=== PATIENT | female | born 1975 | race Caucasian/White ===

== ENCOUNTER 2017-05-25 13:30 | Inpatient (IN) | payer BC ==
[~2017-05-25] VITALS: Ht 165.1 cm; Wt 106.6 kg
--- NOTE | ~2017-05-25 | ECHO ---
Transthoracic Echocardiography Report (TTE) Demographics Patient Name AIYANA ZARATE Date of Study 05/28/2017 Patient Number [id number] Visit Number [id number] Date of 1975 Room Number G6226 Gender Female Number Age 42 year(s) Referring Julio Cesar Corrales MD Blood Bank Credit Clerk Fredis Hutchins Libra, Physician Maggie Correia [facility] Everett Fuller MD Physician Interpreting Luis Fernando Rushing Stallion Keeper Physician A Supervising Ordering Julio Cesar Corrales MD, MD/MLP Physician Nurse Stress Punch Press Feeder Conclusions Summary Full exam done on 05/25/17. Limited echo for bubble study to rule out if there is a PFO present. Cannot definitively rule out of is a PFO is present. Definitely no significant R to L shunt is present Procedure Type of Study TTE procedure:Echo Limited w/ Contrast, Echo with Contrast. Procedure Date Date: 05/28/2017 Start: 12:11 PM Study Location: Inpatient Portable Technical Quality: Adequate visualization Indications:PFO. Appropriate Use Criteria: 8 Patient Status: Routine Contrast Medium: Optison. Rhythm: NSR HR: 80 bpm Allergies - No known allergies. Signature dtt: 05/30/17 1003 Ernestina Gould dtd: 05/28/17 1211 Physician Self Edit
--- NOTE | ~2017-05-25 | CATH ---
Cardiac Diagnostic Report Demographics Patient Name TESSA Correia Gender Female Date of 1975 Age 42 year(s) Patient Number [id number] Date of Study 05/31/2017 Visit Number [id number] Room Number G6[address] [place] [id number] Ht 167.64 cm Wt 116.01 kg Referring Maggie Kelly Primary Physician Physician Masood Performing [place] Secondary Physician Physician Praveena LEWIS Diagnostic [facility] Assisting Physician Physician Praveena LEWIS Interventional Physician Wallboard Worker Physician Findings and Conclusions Diagnostic Findings and Conclusion Moderate pulmonary HTN, mean PA systolic pressure of 43 mmHg, TPG of 30 mmHg, PCWP of 13 mmHg. Vasodilator testing with nipride: Nipride challenge without any significant reversibility. Dose titrated according to protocol upto 8 mcgs/kg/minute of nipride without any significant response and test was terminated. Pre Nipride PA 53/35 (43) Wedge 16/11 (13) RV 52/1 RA 5/4 Post Nipride PA 51/24 (37) Wedge 9/10 Bakari CO 5.14 PA sat 74%, RA sat 72% on 1 L/oxygen. Diagnostic Recommendations Medical management. consider xarelto for treatment of acute PE/DVT. Negative vasodilator response with nipride. Procedure Description The patient was brought to the diagnostic cardiac catheterization-EP laboratory in the fasting, non-sedated state. Informed consent was obtained in the written and verbal form after the risks and benefits were explained. The patient had no further questions and agreed to proceed. The planned puncture-incision site(s) were shaved and prepped with ChloraPrep and draped in the usual sterile manner. Conscious sedation, supplemental oxygen, and pain control medications were delivered by a registered nurse under physician guidance. Surface ECG rhythm, blood pressure measurement, and pulse oximetry were monitored throughout the procedure. Venous access. The access site was infiltrated with lidocaine. The vessel was entered with the Seldinger technique. A sheath was advanced into the vessel and used for catheter placement. Right heart catheterization. A Sargeant Carrol catheter was successfully advanced to the right atrium, right ventricle, pulmonary artery, and pulmonary artery wedge position under fluoroscopic guidance. Resting hemodynamics were obtained. Measurements included pressures, arterial and venous oxygen saturation samples. Nipride challenge was performed by protocol. The Sargeant was removed without difficulty. Venous hemostasis was achieved. The patient was transferred to a regular nursing floor via cart accompanied by a nurse. The patient left the laboratory in stable condition. Diagnostic Cath Status: Urgent Procedure Procedure Type Diagnostic procedure:Angiography:, RHC Indications: Pulmonary HTN. The procedure was explained in detail to the patient. Risks, complications and alternative treatments were reviewed. Written consent was obtained. Medications Reviewed with Patient prior to Procedure. Procedure Data Procedure Date Date: 05/31/2017Start: 12:04 PMEnd: 12:49 PM Entry Locations - Percutaneous access was performed through the Right Brachial vein (Primary location). A 6 Fr sheath was inserted. Hemostasis was successfully obtained using Manual Compression. Closure Comments: Manual pressure held by Bigg.. Procedure Medications Order and Administration + + + + + !Time !Medication !Dosage !Route ! + + + + + !05/31/2017 12:15 PM !Nipride !1 mcg/kg/min !I.V. drip ! + + + + + !05/31/2017 12:17 PM !Nipride !2 mcg/kg/min !I.V. drip ! + + + + + !05/31/2017 12:20 PM !Nipride !3 mcg/kg/min !I.V. drip ! + + + + + !05/31/2017 12:23 PM !Nipride !4 mcg/kg/min !I.V. drip ! + + + + + !05/31/2017 12:25 PM !Nipride !5 mcg/kg/min !I.V. drip ! + + + + + !05/31/2017 12:28 PM !Nipride !6 mcg/kg/min !I.V. drip ! + + + + + !05/31/2017 12:30 PM !Nipride !7 mcg/kg/min !I.V. drip ! + + + + + !05/31/2017 12:31 PM !Nipride !8 mcg/kg/min !I.V. drip ! + + + + + !05/31/2017 12:34 PM !Nipride ! !I.V. drip ! + + + + + !05/31/2017 12:38 PM !Heparin (ACC_3) !1000 units !I.V. drip ! + + + + + Devices Used - A6 Fr. Balloon Wedge Catheterwas used for:Right heart cath. Fluoroscopy Time: Diagnostic: 1:48 minutes. Total: 1:48 minutes. Fluoroscopy Dose: Diagnostic: 21 mGy. Total: 21 mGy. Estimated Blood Loss: 10 ml. Medical History Performed Procedures and Imaging Results - No ACC stress or imaging studies were performed. History of Disease + + + + !Diagnosis !Date !Comments ! + + + + !Hypertension ! ! ! + + + + Allergies - No known allergies. Risk Factors The patient risk factors include:hypertension, chronic lung disease, last creatinine: 0.8 mg/dl, creatinine clearance: 167.77 ml/min and Current/Recent(w/in 1 year) tobacco use. Admission Data Admission Date: 05/25/2017 Admission Time: 01:32 PM Admit Source: [facility] Insurance Payors: Private health insurance. Admission Medications + +------+------+ + + + + !Medication !Dosage!Times !Last !Last !Administered !Comments ! ! ! !Per !Delivery !Delivery ! ! ! ! ! !Day !Date !Time ! ! ! + +------+------+ + + + + !KARINA ! ! ! ! !Yes ! ! !Inhibitor ! ! ! ! ! ! ! !(any) ! ! ! ! ! ! ! + +------+------+ + + + + !Nitrates (iv! ! ! ! !Yes ! ! !or buccal) ! ! ! ! ! ! ! + +------+------+ + + + + Clinical Evaluation Leading to Procedure - There were no CAD presentation symptoms. - Anti-anginal medications were prescribed during the past two weeks. The medication is: Ca channel Blockers. - The patient has been in a state of heart failure within the past two weeks. - The patient's heart failure status was assessed as NYHA Class IV. Hemodynamics Condition: Rest O2 Consumption: Estimated: 227.70Heart Rate: 74 bpm Oxygen Saturation +--------+-----+----+ +---+ + !Location!pCO2 !pO2 !% Saturation !Hgb!O2 Content ! +--------+-----+----+ +---+ + !AO ! ! !91 ! ! ! +--------+-----+----+ +---+ + !PA ! ! !73 ! ! ! +--------+-----+----+ +---+ + !PA ! ! !80 ! ! ! +--------+-----+----+ +---+ + !RA ! ! !80.2 ! ! ! +--------+-----+----+ +---+ + !RA ! ! !71.6 ! ! ! +--------+-----+----+ +---+ + Pressures (mmHg) +-----+ + !Site !Pressure ! +-----+ + !PCW !16/11 (13) ! +-----+ + !PA !53/35 (43) ! +-----+ + !PA !51/24 (37) ! +-----+ + !PCW !07/17 (7) ! +-----+ + !RV !52/0 ,1 ! +-----+ + !RA !/ (3) ! +-----+ + Cardiac Output +------+ + + + !Method!CO (l/min) !CI (l/min/m2) !SV (ml) ! +------+ + + + !Bakari !5.14 !2.3 !69 ! +------+ + + + Shunts Oxygen Values O2 Capacity 246.16 O2 Consumption 227.7 Flows (l/min) Qs 4.77 Qe/Qp 0.93 Qp 5.14 Qp/Qs 1.08 Qe 4.77 Vascular Resistance (dynes x sec x cm-5) + +----+---+----+----+---------+-------+ !CO method !TSVR!SVR!TPVR!PVR !TPVR/TSVR!PVR/SVR! + +----+---+----+----+---------+-------+ !Bakari ! ! !7.11!568! ! ! + +----+---+----+----+---------+-------+ !Qp or Qs ! ! !7.11!5! ! ! + +----+---+----+----+---------+-------+ Signatures dtt: PRAVEENA YOST dtd: 05/31/17 1204 Physician Self Edit
--- NOTE | ~2017-05-25 | DS ---
PATIENT'S NAME: AIYANA ZARATE [facility] AGE: 42 Y [address] ROOM: [address] [address] LOCATION: GICU ADMIT DATE: 05/25/2017 Discharge Summary DISCHARGE DATE: 05/31/2017 FAMILY PHYSICIAN: Kelly Serrano MD ATTENDING PHYSICIAN: Lila Floyd PRINCIPAL DIAGNOSES: Pulmonary hypertension. SECONDARY DIAGNOSES: 1. Acute hypoxic and hypercapnic respiratory failure. 2. Pulmonary embolism. 3. Essential hypertension. 4. Congestive heart failure, acute exacerbation. 5. Moderate obesity. 6. Very likely underlying pickwickian. 7. Chronic obstructive pulmonary disease/asthma syndrome. HOSPITAL COURSE: A 42-year-old lady with a past medical history of hypertension and obesity presented to the [facility] with increasing leg swelling. In the emergency department, she was found to be hypoxic saturating 82% on room air. A CAT scan of the chest was undertaken which showed subsegmental pulmonary embolism in the left-side and she was transferred here for further medical care. On arrival to our facility, she was satting 90% on 6 L of oxygen. She was put on heparin drip for anticoagulation and an echocardiogram was done, which showed preserved systolic function, severely dilated right ventricle, severely dilated RA, grossly normal RV systolic function, and paradoxical septal motion. Her hypoxia was disproportionate to the subsegmental pulmonary embolism and given that she was hypoxic and on blood work she was found to be polycythemic, it was considered that she probably have some hypoxia going on for awhile which caused this pulmonary hypertension. Pulmonology consultation was obtained and the likely diagnosis of pickwickian syndrome and COPD/asthma syndrome was made. She does need a formal testing to be undertaken yet. She was diuresed aggressively during the course of the hospitalization with significant improvement in her saturation. On the day of the discharge, she was satting 92% without any oxygen. Cardiology consultation was also made for right heart catheterization, which showed [id number] pulmonary hypertension without any vasoreactivity. Probably, this pulmonary hypertension is type 3 in nature. She will be discharged home on a diuretic medication to control her essential hypertension and 2 L of oxygen at nighttime. Decision to start BiPAP or CPAP at nighttime will be undertaken by Dr. Harrell in 1 week when he will follow up with her in [place]. She will be send home on some vasodilators. Regarding her anticoagulation, we started her on Xarelto on discharge. DISCHARGE MEDICATIONS: Include: PATIENT'S NAME: AIYANA ZARATE [facility] AGE: 42 Y [address] ROOM: G6226 [place], [place] [address] LOCATION: [facility] ADMIT DATE: 05/25/2017 Discharge Summary DISCHARGE DATE: 05/31/2017 FAMILY PHYSICIAN: Kelly Serrano MD ATTENDING PHYSICIAN: Lila Floyd 1. Amlodipine 10 mg p.o. everyday. 2. Lisinopril 40 mg p.o. daily. 3. Potassium chloride 10 mEq p.o. everyday. 4. Prednisone 20 mg p.o. for 3 more days. 5. Furosemide 40 mg p.o. everyday. 6. Thiamine 100 mg p.o. everyday. New medications include: 1. Amlodipine 10 mg p.o. everyday. 2. Prednisone 20 mg p.o. daily for 3 more days. 3. Symbicort 160/4.5 inhalation b.i.d. 4. Xarelto 50 mg p.o. b.i.d. for 21 days and then 20 mg p.o. daily. DIET: Low-sodium diet. FOLLOW UP: Follow up with Dr. Harrell in 1 week. She needs to go home on 2 L of oxygen at bedtime. I spent 60 minutes in discharge planning, coordinating care with Dr. Harrell, as well as explaining the diagnosis and follow up to the patient. MD BELEM JACKSON/maria a /[id number] d: 06/01/17 0054 t: 06/06/17 0911, DISCHARGE SUMMARY
--- NOTE | ~2017-05-25 | ECHO ---
Transthoracic Echocardiography Report (TTE) Demographics Patient Name AIYANA ZARATE Date of Study 05/25/2017 Patient Number [id number] Visit Number [id number] Date of 1975 Room Number G6226 Gender Female Number Age 42 year(s) Referring Everett Fuller Sagger Soak Lucia Lamas RVT Physician Physician Interpreting Yue Grissom Ux Lead Physician Supervising Ordering Everett Fuller MD/MLP Physician MD Nurse Stress Director Of Optimization Conclusions Contractility Score Summary Normal Left Ventricular contractility was noted. Summary LV systolic function appears to be preserved. Unable to comment on accurate LVEF due to poor images. Moderate concentric left ventricular hypertrophy. Diastolic assessment reveals normal relaxation. Severely dilated right ventricle. Severely dilated RV. RV systolic function is grossly normal, TAPSE is 1.97 cms. Paradoxical septal motion consistent with right ventricle pressure and/or volume overload . The right atrium is severely dilated. IVC measures 2.26 cm with no inspiratory collapse. Mild tricuspid regurgitation by color Doppler. There is mild pulmonary hypertension. The pulmonary pressure (RVSP) is 45 mmHg. Procedure Type of Study TTE procedure:2D Echocardiogram. Procedure Date Date: 05/25/2017 Start: 02:32 PM Study Location: Inpatient Portable Technical Quality: Adequate visualization Indications:Pulmonary embolus. Appropriate Use Criteria: 9 Patient Status: STAT HR: 80 bpm BP: 170/104 mmHg M-Mode/2D Measurements LV Diastolic Dimension: 4.67 cm LV Systolic Dimension: 2.7 cm LV Septum Diastolic: 1.8 cm LV PW Diastolic: 1.68 cm AO Root Dimension: 2.5 cm Cardiac Output: 4.32 l/min AV Cusp Separation: 2.3 cm LVOT: 2 cm RV Base: 4.14 cm LVOT VTI: 17.2 cm RV Mid: 3.76 cm LV Stroke volume: 54.01 ml TAPSE: 1.97 cm TDI-S': 13 cm/s Doppler Measurements AV Peak Velocity: 1.64 m/s MV Peak E-Wave: 0.84 m/s AV Peak Gradient: 10.76 mmHg MV Peak A-Wave: 0.63 m/s AV Mean Gradient: 5 mmHg MV E/A Ratio: 1.34 LVOT Peak Velocity: 0.88 m/s MV P1/2t: 51 msec TR Gradient:29.81 mmHg PV Peak Velocity: 0.91 m/s Estimated RAP:15 mmHg PV Peak Gradient: 3.31 mmHg Estimated RVSP: 45 mmHg Estimated PASP: 44.81 mmHg E' Septal Velocity: 0.11 m/s A' Septal Velocity: 0.09 m/s E' Lateral Velocity: 0.09 m/s A' Lateral Velocity: 0.12 m/s Findings Left Ventricle Moderate concentric left ventricular hypertrophy. Diastolic assessment reveals normal relaxation. Paradoxical septal motion consistent with right ventricle pressure and/or volume overload . Right Ventricle Severely dilated RV. RV systolic function is grossly normal, TAPSE is 1.97 cms. Left Atrium Normal left atrial size. Right Atrium The right atrium is severely dilated. IVC measures 2.26 cm with no inspiratory collapse. Mitral Valve Mild mitral annular calcification. Aortic Valve Mild AV sclerosis. Tricuspid Valve Mild tricuspid regurgitation by color Doppler. There is mild pulmonary hypertension. The pulmonary pressure (RVSP) is 45 mmHg. Pulmonic Valve Normal pulmonic valve structure and function. Pericardial Effusion Trivial pericardial effusion. Miscellaneous Visualized portions of the aortic root and ascending aorta appear normal in size. Pleural Effusion No evidence of pleural effusion. Contractility Score LV regional wall motion:(0-Non visualized 1-Normal 2-Hypokinesis 3-Akinesis 4-Dyskinesis 5-Aneurysm) Signature dtt: LUKE YOST dtd: 05/25/17 7749 Physician Self Edit
--- NOTE | ~2017-05-25 | HP ---
PATIENT'S NAME: AIYANA ZARATE [facility] AGE: 42 Y [address] ROOM: [place] [id number] LOCATION: [facility] ADMIT DATE: 05/25/2017 History & Physical DISCHARGE DATE: FAMILY PHYSICIAN: PHYSICIAN, UNKNOWN ATTENDING PHYSICIAN: JACKIE ASKEW DATE OF SERVICE: CHIEF COMPLAINT: Volume overload. HISTORY OF PRESENT ILLNESS: A 42-year-old lady with no significant past medical history, who started to have leg swelling for past couple of months, which progressively got worse, treated with diuretics and a blood pressure medication, who presented to the emergency department at [place] yesterday with increasing new leg swelling. She was initially worked up there, which also included a chest x-ray. She was found to be hypoxic, requiring 6 L of oxygen. A CAT scan was undertaken. Left-sided segmental pulmonary embolism was found, and she was transferred here for further medical care. On my encounter, she says that she is comfortable. Her only complaint right now is that it appears that she is having extra fluid on her. When I asked specifically, she denied any shortness of breath, any cough, any sputum production, any chest pressure, any palpitations. She further denied any PND or orthopnea. She never had any heart attacks or any other cardiac issues in the past. She was not on any medications before 2 months ago. On further inquiry, she denied any abdominal pain, any constipation, or any diarrhea. REVIEW OF SYSTEMS: All other systems reviewed and were negative except what is mentioned in the HPI. ALLERGIES: NO KNOWN DRUG ALLERGIES. PAST MEDICAL HISTORY: 1. Newly diagnosed cardiomyopathy. No echo is done so far. Tobacco abuse. 2. Hypertension. 3. Lower extremity edema. MEDICATIONS: Medications are being reconciled right now. SOCIAL HISTORY: The patient is a lifelong smoker. PATIENT'S NAME: AIYANA ZARATE [facility] AGE: 42 Y [address] ROOM: [address] [place] [id number] LOCATION: [facility] ADMIT DATE: 05/25/2017 History & Physical DISCHARGE DATE: FAMILY PHYSICIAN: PHYSICIAN, UNKNOWN ATTENDING PHYSICIAN: JACKIE ASKEW FAMILY HISTORY: Family history is significant for coronary artery disease on maternal side. PHYSICAL EXAMINATION: INITIAL VITALS: 165/78, 62, saturating 92% on 6 L of oxygen, afebrile. GENERAL: No acute distress. Alert and oriented x3. HEENT: Head: Atraumatic, normocephalic. Eyes: Nonicteric. No pallor. Oropharynx: Moist mucous membranes. CARDIOVASCULAR: S1, S2. No murmurs, gallops, or rubs. LUNGS: Decreased air entry bilaterally. No crepitations. No expiratory wheezes noted. ABDOMEN: Obese, soft, nontender, and nondistended. Striae britt noted. Bowel sounds are present. EXTREMITIES: +3 extremity edema noted. PSYCHIATRIC: Normal affect, mood, and speech. NEUROLOGIC: Cranial nerves 2 through 12 intact. No motor or sensory deficit noted. MUSCULOSKELETAL: No muscle tenderness or joint swelling noted. LYMPHATICS: No lymphangitis noted. No lymphadenopathy. LABORATORY DATA: Lab work from outside facility showed a hemoglobin of 17, white count of 5.4, platelets 120. Elevated liver enzymes with AST of 1700, ALT of 2000, bilirubin 1.9, alkaline phosphatase of 60. BMP was notable for sodium of 142, potassium 4.1, chloride 120, bicarb 35, BUN 43, creatinine of 0.9. A CAT scan from outside facility showed left segmental pulmonary embolism without any infiltrate, consolidation, or edema in the lung parenchyma. ASSESSMENT AND PLAN: 1. Acute hypoxic respiratory failure. 2. Acute pulmonary embolism. 3. Acute congestive heart failure exacerbation. 4. Elevated liver enzymes. 5. Hepatic congestion. 6. Acute kidney injury. 7. Anasarca. At this point, we are going to admit this patient to our lower ICU. She is at high risk of deterioration. Supplemental oxygen is started. Heparin drip is started as well. Stat echo had been requested. Cardiology and Pulmonary consultation will be obtained. We are going to obtain ABG and bedrest will be advised at this point. EKG from outside hospital was normal sinus rhythm without any acute ST-T wave changes. Troponin level and proBNP have been ordered. The patient is full code. The patient will be monitored here in the ICU and her further course will be dictated by her progress in the hospital. PATIENT'S NAME: AIYANA ZARATE [facility] AGE: 42 Y [address] ROOM: [place] [address] LOCATION: [facility] ADMIT DATE: 05/25/2017 History & Physical DISCHARGE DATE: FAMILY PHYSICIAN: PHYSICIAN, UNKNOWN ATTENDING PHYSICIAN: JACKIE ASKEW I discussed the current diagnosis with her. I explained that if need be, in case of her hemodynamic collapse, we might have to use clot buster medications, and she understands the risks with that. No contraindication for that. I had CAT scan of the chest from outside facility over read by our radiologist, who called the pulmonary embolism subsegmental rather than segmental. Her hemodynamics have been stable in terms of her heart rate as well as blood pressure. Her hypoxia is disproportionate to this subsegmental pulmonary embolism. We will investigate that and get Pulmonary on board as well. JACKIE ASKEW MD BELEM/maria a /[id number] D: [id number] T: [id number] HISTORY & PHYSICAL
--- NOTE | ~2017-05-25 | CON ---
PATIENT'S NAME: AIYANA ZARATE [facility] AGE: 42 Y [address] ROOM: [place] [address] LOCATION: GICU ADMIT DATE: 05/25/2017 Consultation DISCHARGE DATE: FAMILY PHYSICIAN: PHYSICIAN, UNKNOWN ATTENDING PHYSICIAN: LILA FLOYD DATE OF CONSULTATION: 05/25/2017 REFERRING PHYSICIAN: LUKE YOST MD REQUESTING PROVIDER: Lila Floyd MD REASON FOR CONSULTATION: Increased troponin and shortness of breath. CHIEF COMPLAINT: Shortness of breath and lower extremity swelling. HISTORY OF PRESENTING ILLNESS: The patient is a very pleasant, 42-year-old female, who is obese, and she has history of tobacco abuse, she also has history of hypertension, and she is noncompliant with her medications. The patient reports she has been having trouble with shortness of breath and swelling in her lower extremities that has been getting progressively worse for about the past 2 months. She reports this was gradual onset, and her breathing has been fairly stable, and she is able to do her daily activities and works at [employer] and reports her symptoms of shortness of breath are not lifestyle-limiting. However, she was mostly concerned about her lower extremity edema and hence she then went to the local emergency room at [place] where she lives. She was given Lasix there, and underwent CAT scan because she was not having any improvement in her symptoms and subsegmental PE was found. There is no pleural effusion or pneumothorax, and the main pulmonary artery was slightly enlarged at 4.3 cm. The subsegmental PE was noted in the lateral segment of the left lower lobe. She continued to require increased O2, and she was finally then transferred here for further care. Upon arrival here, she did have increased requirement for her oxygen, and she seems to be comfortable and saturating well but is requiring 6 L of oxygen. The patient denies chest pain, tightness, pressure, or heaviness. She really does not have any dizziness, palpitations, or never had any loss of consciousness. At the outside hospital, the patient became confused last night and underwent a CT scan without any acute findings. Chest x-ray did show cardiomegaly as PATIENT'S NAME: AIYANA ZARATE [facility] AGE: 42 Y [address] ROOM: [address] [address] LOCATION: GI ADMIT DATE: 05/25/2017 Consultation DISCHARGE DATE: FAMILY PHYSICIAN: PHYSICIAN, UNKNOWN ATTENDING PHYSICIAN: LILA FLOYD. The patient was started on heparin at the outside hospital and finally transferred here. REVIEW OF SYSTEMS: All review of systems discussed with the patient, and pertinent positives and negatives mentioned in the history of presenting illness. PAST MEDICAL HISTORY: 1. Hypertension. 2. Obesity. PAST SURGICAL HISTORY: Appendectomy and . SOCIAL HISTORY: The patient smokes about three-fourth pack of cigarettes per day for about 25 years. Social drinker. No illicit drug abuse or alcohol abuse. The patient is and has 5 children. FAMILY HISTORY: Positive for DVT in her father at about 50 years of age. Positive for premature coronary artery disease in her siblings. No sudden cardiac . HOME MEDICATIONS: 1. Lisinopril 20 mg daily. 2. Ibuprofen 200 mg p.o. q.4 hours p.r.n. 3. Lasix 40 mg daily. 4. Potassium chloride 10 mEq daily. PHYSICAL EXAMINATION: VITAL SIGNS: Blood pressure is 160/100 mmHg, heart rate 60s, afebrile, O2 saturation 93% on 6 L of oxygen, and respiratory rate is 16. NECK: No JVD. HEART: S1, S2. Regular rate and rhythm. No murmurs, gallops, or rubs. LUNGS: Decreased breath sounds bilaterally. Poor air exchange and prolonged phase of expiration. ABDOMEN: Obese. Bowel sounds positive. SKIN: Warm and dry. Mild to moderate lower extremity edema bilaterally from the knee down. MUSCULOSKELETAL: Good range of motion. NEURO: Grossly intact. Grossly normal movements. Speech is normal. Extraocular movements are intact. Mucous membranes are moist. Sclerae white. Nares are normal. PATIENT'S NAME: AIYANA ZARATE [facility] AGE: 42 Y [address] ROOM: [address] [address] LOCATION: [facility] ADMIT DATE: 05/25/2017 Consultation DISCHARGE DATE: FAMILY PHYSICIAN: PHYSICIAN, UNKNOWN ATTENDING PHYSICIAN: LILA FLOYD LABORATORIES: The pH is 7.37, pCO2 of 74, pO2 of 78, and bicarb 42 on 6 L of oxygen. Sodium 146, potassium 4.2, chloride 104, CO2 of 40, anion gap is 6.2, glucose is 103, BUN 29, creatinine 0.8, troponin 0.27, and proBNP 613. WBC 5.3, H and H 19 and 57, and platelets are 133. INR is 1.3. PTT is 49. Echocardiogram shows severely dilated right atrium and right ventricle with normal RV systolic function. LV systolic function appears grossly normal; however, the echo quality was quite poor and unable to comment on accurate LV systolic function. Normal diastolic function. Inferior vena cava is 2.26 with no inspiratory collapse. Right atrium severely dilated, mild TR, and mild pulmonary hypertension with PA systolic pressure of 45 mmHg. EKG: Normal sinus rhythm with evidence of rightward axis on ECG as well as poor precordial R-wave progression. IMPRESSION: 1. Acute hypercapnic, type 2 and hypoxic Respiratory failure. 2. Acute pulmonary embolism and deep venous thrombosis. 3. Cor pulmonale with evidence of mild pulmonary hypertension on echocardiogram, however, this is likely an underestimate. 4. Obesity. 5. Tobacco abuse. 6. Polycythemia secondary to chronic hypoxia. PLAN: At this time, the patient likely has significant underlying COPD. She could have pulmonary arterial hypertension given her new-onset symptoms and worsening symptoms. However, given the tobacco abuse, she likely has type 3 pulmonary hypertension. At this point, I also do recommend hypercoagulable workup given that she has family history of DVT and this is an unprovoked DVT in a 42-year-old who is not on control. She will likely benefit from novel oral anticoagulation given the better results in some of the randomized trials compared to heparin and warfarin. I do recommend a novel agent for anticoagulation if possible and her insurance permits. I will go ahead and proceed with right heart catheterization as suggested also by Dr. Moulton and do a shunt run, and if her mean pulmonary artery pressure is over 40, then we will consider doing a reversibility test as well to see if she would benefit from some of the novel agents including endothelin receptors as well as prostacyclin agents for her pulmonary hypertension. In the PATIENT'S NAME: AIYANA [facility]ATE [facility] AGE: 42 Y [address] ROOM: [place] [address] LOCATION: [facility] ADMIT DATE: 05/25/2017 Consultation DISCHARGE DATE: FAMILY PHYSICIAN: PHYSICIAN, UNKNOWN ATTENDING PHYSICIAN: LILA FLOYD interim, since she has high blood pressure, I could put her on a little bit of Norvasc to help control the blood pressure better. Informed consent obtained for a right heart catheterization. Risks and benefits discussed in detail and alternatives. The patient is agreeable to proceed with right heart catheterization at this time. Risk of bleed, bruise, and infection 1:100 cases. Risk of pulmonary hemorrhage, , changes in blood pressure and respirations secondary to moderate sedation discussed with the patient. At this point, benefits greater than risks and will proceed with right heart cath and patient is agreeable. Counselled against tobacco abuse. Hospitalist team working up on the elevated liver enzymes as well. Agree with IV hydration. For now, monitoring her I's and O's closely and daily weights. Case discussed in detail with Dr. Floyd as well as the patient and family and Dr. Moulton. Thank you very much for allowing us to participate in the care of Mrs. Zarate. LUKE YOST MD AT/modl /[id number] d: 05/26/17 0157 t: 05/31/17 0806, CONSULTATION REPORT
--- NOTE | ~2017-05-25 | CON ---
PATIENT'S NAME: AIYANA ZARATE [facility] AGE: 42 Y [address] ROOM: [place] [address] LOCATION: CU ADMIT DATE: 05/25/2017 Consultation DISCHARGE DATE: 05/31/2017 FAMILY PHYSICIAN: Kelly Serrano MD ATTENDING PHYSICIAN: Lila Floyd DATE OF CONSULTATION: 05/25/2017 REFERRING PHYSICIAN: Praveena Turner MD CONSULTATION NOTE REASON FOR CONSULTATION: Indication; hypoxia and hypercapnia. HISTORY OF PRESENT ILLNESS: This is a 42-year-old female, transferred from [place] for PE. She has a history of hypertension and tobacco use since 18 years old, per reports less than a pack a day. She says that she developed sudden onset lower extremity edema two months ago that has been progressively getting worse. She saw her PCP last week for it and was started on a diuretic. She had some improvement noted, however, and ended up being admitted to [place] yesterday with a CT subsequently showing subsegmental PEs. She also had an elevated ProBNP, liver enzymes, and hemoglobin. Currently, she denies any shortness of breath, PND, orthopnea, cough, hemoptysis, or wheezing. She has no previous lung history. She denies any excessive daytime sleepiness or fatigue. She reports that she works at [employer] without any issues. PAST MEDICAL HISTORY: Includes: 1. Hypertension. 2. Obesity. SOCIAL HISTORY: The patient reports that she started smoking at the age of 18 and still continues to smoke less than a pack per day. FAMILY HISTORY: Significant for coronary artery disease. ALLERGIES: SEE MAR. MEDICATIONS: See MAR. PATIENT'S NAME: AIYANA ZARATE [facility] AGE: 42 Y [address] ROOM: [address] [address] LOCATION: [facility] ADMIT DATE: 05/25/2017 Consultation DISCHARGE DATE: 05/31/2017 FAMILY PHYSICIAN: Kelly Serrano MD ATTENDING PHYSICIAN: Lila Floyd REVIEW OF SYSTEMS: All review of systems were reviewed and were negative except for what is noted in the HPI. PHYSICAL EXAMINATION: VITAL SIGNS: Blood pressure 139/92, pulse 76, respirations 25, and temperature 99.4. She is 94% on 6 L nasal cannula. GENERAL: This is a 42-year-old, obese female who is alert and oriented x3 and appears in mild acute distress secondary to her breathing. HEENT: Head; normocephalic and atraumatic. Eyes; clear. NECK: Supple. No adenopathy. No carotid bruits or JVD. LUNGS: Diminished breath sounds at both bases, otherwise, clear. HEART: Regular rate and rhythm with a 2/6 systolic murmur. ABDOMEN: Soft, nontender, and nondistended. Bowel sounds x4. EXTREMITIES: 2+ lower extremity edema up to her knees. DIAGNOSTIC DATA: Includes an ABG showed a pH of 7.37, pCO2 of 74, pO2 of 78, bicarbonate 42.8, and base excess of 14.2. ProBNP 613. Troponin 0.27. Lactate 1.3. Sodium 146, potassium 4.2, BUN 29, and creatinine 0.8. WBC 5.3, hemoglobin 19.1, hematocrit 57.0, and platelets 133,000. INR 1.3. Procalcitonin 0.15. Echocardiogram showed severely dilated right ventricle and pulmonary hypertension. Preliminary Doppler shows a DVT in the right calf. Chest CT showed a small PE. No saddle embolus and normal lung parenchyma. There is evidence of enlarged right ventricle and right atrium. ASSESSMENT: 1. Acute hypercapnic respiratory failure secondary to fluid overload and cor pulmonale. Would recommend adding a diuretic regimen secondary to fluid overload and cor pulmonale as well as newly added diuretic regimen with ensuing severe metabolic alkalosis. (?) obesity hypoventilation syndrome. 2. Cor pulmonale, decompensated. 3. Pulmonary hypertension. Suspect pulmonary arterial hypertension due to young age, female gender. 4. Polycythemia suggestive of chronic hypoxia. 5. Metabolic alkalosis. 6. Tobacco abuse. 7. Acute deep venous thrombosis and pulmonary embolism, on heparin drip. PLAN: We will administer Diamox today and follow up on the renal panel. Further recommendations will be made pending her stay. Thank you for the consult and opportunity to participate in this patient's PATIENT'S NAME: AIYANA ZARATE [facility] AGE: 42 Y [address] ROOM: [place] [address] LOCATION: [facility] ADMIT DATE: 05/25/2017 Consultation DISCHARGE DATE: 05/31/2017 FAMILY PHYSICIAN: Kelly Serrano MD ATTENDING PHYSICIAN: Lila Floyd. REED KEARNEY APRN FOR NEL RIVAS MD MRBrian/modl /[id number] d: 06/17/17 1830 t: 06/28/17 0856, CONSULTATION REPORT
--- NOTE | ~2017-05-25 | PUL ---
PATIENT'S NAME: AIYANA ZARATE [facility] AGE: 42 Y [address] ROOM: [place] [address] LOCATION: GICU ADMIT DATE: 05/25/2017 Pulmonary DISCHARGE DATE: 05/31/2017 FAMILY PHYSICIAN: Kelly Serrano MD ATTENDING PHYSICIAN: Lila Floyd NAME OF PROCEDURE: Pulmonary Function Test DATE OF PROCEDURE: May 30, 2017 REASON FOR EXAM: Shortness of breath RESULTS: Spirometry demonstrates severe airflow obstruction with improvement post bronchodilator. HERNAN BARKLEY MD OCT/ /[id number] dtt: 06/03/17 1303 Julio Cesar David E. dtd: 06/02/17 1332
--- NOTE | ~2017-05-25 | ENPV ---
Vascular Lower Extremities DVT Study Procedure Demographics Patient Name AIYANA ZARATE Date of Study 05/25/2017 Patient Number [id number] Gender Female Date of 1975 Age 42 Visit Number [id number] Height 66 Accession Number [id number] Weight 255.75 Referring Interpreting Javier Yip MD Physician Physician Physician Ordering Dorothy Recinos [employer] Aircraft Physician Treater Helper Allie Sullivan [facility], [facility] Conclusions Summary The right common femoral to pop veins appear patent .There is chronic deep vein thrombosis in the right peroneal veins. No evidence of deep vein thrombosis or superficial thrombophlebitis in the left lower extremity. Procedure Type of Study: Veins:Lower Extremities DVT Study, Venous Duplex Lower Extremity Bilateral. Appropriate Use Criteria:7 Patient Status:STAT. Study Location:[employer]. Technical Quality:Limited visualization. Velocities are measured in cm/s ; Diameters are measured in cm Right Lower Extremities DVT Study Measurements Right 2D and Doppler Measurements + + + + +------+------+ + !Location !Visualized!Compressibility!Thrombosis!Signal!Reflux!Reflux ! ! ! ! ! ! ! !(sec) ! + + + + +------+------+ + !GSV Thigh !Yes !Yes !None !Phasic!No ! ! + + + + +------+------+ + !Common !Yes !Yes !None !Phasic!No ! ! !Femoral ! ! ! ! ! ! ! + + + + +------+------+ + !Prox !Yes !Yes !None !Phasic! ! ! !Femoral ! ! ! ! ! ! ! + + + + +------+------+ + !Mid Femoral!Yes !Yes !None !Phasic! ! ! + + + + +------+------+ + !Dist !Yes !Yes !None !Phasic! ! ! !Femoral ! ! ! ! ! ! ! + + + + +------+------+ + !Popliteal !Yes !Yes !None !Phasic! ! ! + + + + +------+------+ + !Gastroc !Yes !Yes !None !Phasic! ! ! + + + + +------+------+ + !PTV !Yes !Yes !Acute ! ! ! ! + + + + +------+------+ + !Peroneal !Yes !No !None ! ! ! ! + + + + +------+------+ + Left Lower Extremities DVT Study Measurements Left 2D and Doppler Measurements + + + + +------+------+ + !Location !Visualized!Compressibility!Thrombosis!Signal!Reflux!Reflux ! ! ! ! ! ! ! !(sec) ! + + + + +------+------+ + !GSV Thigh !Yes !Yes !None !Phasic!No ! ! + + + + +------+------+ + !Common !Yes !Yes !None !Phasic!No ! ! !Femoral ! ! ! ! ! ! ! + + + + +------+------+ + !Prox !Yes !Yes !None !Phasic!No ! ! !Femoral ! ! ! ! ! ! ! + + + + +------+------+ + !Mid Femoral!Yes !Yes !None !Phasic!No ! ! + + + + +------+------+ + !Dist !Yes !Yes !None !Phasic!No ! ! !Femoral ! ! ! ! ! ! ! + + + + +------+------+ + !Popliteal !Yes !Yes !None !Phasic!No ! ! + + + + +------+------+ + !Gastroc !Yes !Yes !None !Phasic!No ! ! + + + + +------+------+ + !PTV !Yes !Yes !None !Phasic!No ! ! + + + + +------+------+ + !Peroneal !Yes !Yes !None !Phasic!No ! ! + + + + +------+------+ + Signature dtt: TERE THOMPSON dtd: 05/25/17 1554 Physician Self Shruthi
[2017-05-25 14:27] LABS: BICARBONATE 42.8 mmol/L (18.0-23.0); PO2 78 mmHg (80-90)
[2017-05-25 14:33] LABS: PCO2 74 mmHg (35-45)
[2017-05-25 14:37] LABS: BASOPHIL # 0.1 K/uL (0.0-0.2); BASOPHIL % 0.9 %; EOSINOPHIL # 0.1 K/uL (0.0-0.5); EOSINOPHIL % 1.9 %; HEMOGLOBIN 19.1 g/dL (10.0-15.0); IMMATURE GRANULOCYTE % 0.6 %; LYMPHOCYTE # 0.8 K/uL (0.8-4.0); LYMPHOCYTE % 15.9 %; MCHC 33.5 gm/dL (32.0-36.5); MCV 107.5 fl (83.0-98.0); MONOCYTE # 0.6 K/uL (0.0-1.0); MONOCYTE % 11.9 %; MPV 10.7 fl (9.4-12.4); NEUTROPHIL # (ANC) 3.6 K/uL (1.8-7.8); NEUTROPHIL % 68.8 %; NRBC % 0 /100WBC (0-0.00); PLATELET COUNT 133 K/uL (150-450); RDW-CV 17.3 % (11.9-14.6); WBC 5.3 K/uL (4.0-11.0)
--- NOTE | 2017-05-25 14:38 | NUR ---
Pt is 42 y/o female admit for PE,elevated liver enzymes for hospitalist. Pt alert and oriented x3, but very poor historian. Resides at home with her family. Hx htn,sz as a child-none since age 6. No allergies. Came via ambulance from [facility]. Pt has been seeing in [facility] for edema in legs and all over. Has hx elevated BNP,htn,weight gain,generalized edema, cardiomegaly. Family at bedside. Echo and lab done.
[2017-05-25 14:46] LABS: INR - (THERAPEUTIC) 1.3 (0.92-1.07); PROTIME 13.7 SECONDS (9.8-11.4)
[2017-05-25 15:01] LABS: BLOOD UREA NITROGEN 29 mg/dL (6-24); CALCIUM 8.4 mg/dL (8.5-10.5); CHLORIDE 104 mMol/L (96-110); CREATININE 0.8 mg/dL (0.5-1.1)
[2017-05-25 15:02] LABS: ANION GAP 6.2 (10.0-19.0); CO2 40 mMol/L (22-32); POTASSIUM 4.2 mMol/L (3.7-5.1); SODIUM 146 mMol/L (135-145)
[2017-05-25] MEDS ORDERED: LASIX40 MG PO (15:03)
[2017-05-25] MEDS ORDERED: PRINIVIL20 MG PO (15:03)
[2017-05-25] MEDS ORDERED: K-TAB 10MEQ10 MEQ PO (15:04)
[2017-05-25] MEDS ORDERED: ADVIL200 MG PO (15:04)
--- NOTE | 2017-05-25 16:34 | NUR ---
Significant Event:PT IS AAOX3. NO C/O NUMBNESS, TINGLING, DOUBLE OR BLURRED VISION, ALSO NO SOB OR CHEST PAIN. ON 6L NC. LUNG SOUNDS ARE CLEAR AND DIMINSIHED. DID HEAR AN EXP. WHEEZE WHEN FIRST ADMITED. ACTIVE BS. NO BM. VOIDED PER BEDPAN. PT DID NOT TOLERATE WELL. ON HEPARIN GTT. NEXT PTTHP AT 2054. IV X2. GAVE DIAMOX IV X1. HAS DVT IN R) CALF. BEDREST.POSSIBLE HEART CATH TOMORROW. Follow up:
[2017-05-25 22:09] LABS: ALBUMIN 2.9 gm/dL (3.5-5.0); TOTAL BILIRUBIN 1.9 mg/dL (0.0-1.5); TOTAL PROTEIN 5.9 g/dL (6.0-8.4)
[2017-05-26 04:28] LABS: BASOPHIL # 0.1 K/uL (0.0-0.2); BASOPHIL % 1.1 %; EOSINOPHIL # 0.1 K/uL (0.0-0.5); EOSINOPHIL % 2.1 %; HEMATOCRIT 57.1 % (33.0-46.0); HEMOGLOBIN 18.4 g/dL (10.0-15.0); IMMATURE GRANULOCYTE % 0.4 %; LYMPHOCYTE # 0.8 K/uL (0.8-4.0); LYMPHOCYTE % 14.7 %; MCH 35.1 pg (27.0-34.0); MCHC 32.2 gm/dL (32.0-36.5); MONOCYTE # 0.7 K/uL (0.0-1.0); MONOCYTE % 13.4 %; MPV 10.3 fl (9.4-12.4); NEUTROPHIL # (ANC) 3.7 K/uL (1.8-7.8); NEUTROPHIL % 68.3 %; NRBC % 0 /100WBC (0-0.00); PLATELET COUNT 108 K/uL (150-450); RBC 5.24 M/uL (3.50-5.50); RDW-CV 16.5 % (11.9-14.6); WBC 5.4 K/uL (4.0-11.0)
--- NOTE | 2017-05-26 04:45 | NUR ---
Significant Event: A/OX3. FORGETFUL AT TIMES. PATIENT AWOKE CONFUSED MULTIPLE TIMES BUT REORIENTS EASILY. PUPILS 3.0 AND BRISK. MOVES ALL EXTREMITIES SPONTANEOSLY AND TO COMMAND. MODERATE, EQUAL STRENGTH. BEDREST WITH BATHROOM PRIVLEDGES. UP SBA. SBP IN 160S-80S. HEART RATE 60S-80S. AFEBRILE. LUNGS CLEAR AND DIMINISHED ON LEFT SIDE AND WHEEZES ON RIGHT SIDE. ON 5L OF O2 PER NASAL CANNULA. ON HEPARIN GTT. CURRENTLY RUNNING AT 1500UNITS/HR. NEXT PTTHP AT 1040. HAD 1100 INTAKE AND 2590 OUTPUT. IV TO LEFT AC AND RIGHT WRIST. LOW SODIUM DIET. COMPLAINED OF HEADACHE - FENTANYL GIVEN WITH RELIEF NOTED. Follow up: HEART CATH TUESDAY AT 8AM - CALL PHOTOVOLTAIC POWER SYSTEMS ENGINEER TO SET UP TODAY.
[2017-05-26 04:49] LABS: ALBUMIN 2.8 gm/dL (3.5-5.0); ALK PHOS 48 IU/L (33-138); BLOOD UREA NITROGEN 22 mg/dL (6-24); CALCIUM 8.4 mg/dL (8.5-10.5); CHLORIDE 102 mMol/L (96-110); CREATININE 0.7 mg/dL (0.5-1.1); POTASSIUM 3.8 mMol/L (3.7-5.1); SODIUM 145 mMol/L (135-145); TOTAL BILIRUBIN 1.8 mg/dL (0.0-1.5); TOTAL PROTEIN 5.7 g/dL (6.0-8.4)
[2017-05-26 04:53] LABS: PHOSPHORUS 3.5 mg/dL (2.5-4.9)
[2017-05-26 05:03] LABS: ALT 1413 IU/L (12-78); ANION GAP 7.8 (10.0-19.0); AST 1074 IU/L (10-40); CO2 39 mMol/L (22-32)
[2017-05-26 06:44] LABS: BILIRUBIN URINE NEGATIVE (NEGATIVE); BLOOD URINE NEGATIVE /UL (NEGATIVE); COLOR URINE YELLOW (YELLOW); GLUCOSE URINE NEGATIVE (NEGATIVE); KETONE URINE NEGATIVE (NEGATIVE); LEUKOCYTES URINE NEGATIVE /UL (NEGATIVE); NITRITE URINE POSITIVE (NEGATIVE); PROTEIN URINE NEGATIVE (NEGATIVE); TURBIDITY URINE 2+ (CLEAR); UROBILINOGEN URINE NORMAL (NORMAL)
[2017-05-26 06:57] LABS: BACTERIA URINE MANY (NEGATIVE); RBC URINE NEGATIVE #/HPF (NEGATIVE); WBC URINE 0-2 #/HPF (NEGATIVE)
[2017-05-26 11:10] LABS: COCAINE NEGATIVE (NEGATIVE); OPIATES NEGATIVE (NEGATIVE)
[2017-05-26 11:13] LABS: AMPHETAMINE NEGATIVE (NEGATIVE); BARBITURATE NEGATIVE (NEGATIVE)
--- NOTE | 2017-05-26 11:35 | NUR ---
Chart reviewed. Patient is restng and very ill at this time. I will continue to follow and touchbase with her when she is mpre medically stable.
--- NOTE | 2017-05-26 15:02 | NUR ---
Significant Event: Patient A/O X3. Forgetful/comfused at times. Reorients. Drowsy part of shift. Denies N/T. Follows commands. Able to make needs known. NSR. Hypertensive. 2+ edema to bilateral lower extremities. 1+ to upper extremities. Afebrile. High flow NC at 70% FiO2. Sats 91-94%. Inspiratory wheeze noted to upper right lobe. Remaining lobes clear and diminished. Low sodium diet. Refused breakfast and lunch. Strict I/O. IVP lasix given X2. Diamox started this shift. BS active X4. No apparent skin issues. PIV to R) wrist infusing heparin at 1500 units/hr. PIV to L) AC SLL. FLushes well with no complications. Bedrest with BSC privileges. Tylenol given X1 this shift for headache. Family at bedside. Patient cooeprative with cares. Follow up: heart cath tomorrow AM at 0800, permits signed
[2017-05-27 05:03] LABS: BICARBONATE 43.8 mmol/L (18.0-23.0); PO2 70 mmHg (80-90)
[2017-05-27 05:11] LABS: PCO2 83 mmHg (35-45)
--- NOTE | 2017-05-27 05:36 | NUR ---
Significant Event: PATIENT IS A/O, VERY SOFT SPOKEN, FLAT AFFECT. OCCASIONALLY REFUSES TO ANSWER QUESTIONS ASKED BY MEDIAL STAFF IN REGARDS TO PAIN, COMFORT, ORIENTATION, ETC. LS CLEAR, O2 SATS >90 ON 70-% Fi02 VIA HI-FLOW NC. HEPARIN ET NITRO GTT INFUSING, SEE FLOWSHEETS FOR DETAILS. PATIENT PULLED OUT L)PIV SHE WAS SITTING UP IN BED. NEW 20G PIV INSERTED INTO L) AC, GOOD BLOOD RETURN, FLUSHES WELL. BATHED ET SHAVED GROIN AREA FOR POSSIBLE CATH SITE USE THIS AM. PCO2 83 THIS AM, RESULTS CALLED TO DR IGLESIAS, PATIENT PLACED ON BIPAP, WILL REDRAW IN 4 HOURS. SBA TO SUAD GAGNON, CONT OF B/B. WILL CONTINUE TO MONITOR.
[2017-05-27 09:05] LABS: BASOPHIL % 0.5 %; EOSINOPHIL # 0.1 K/uL (0.0-0.5); EOSINOPHIL % 1.7 %; HEMATOCRIT 54.9 % (33.0-46.0); HEMOGLOBIN 18.4 g/dL (10.0-15.0); IMMATURE GRANULOCYTE % 0.2 %; LYMPHOCYTE # 0.7 K/uL (0.8-4.0); LYMPHOCYTE % 11.1 %; MCH 36.3 pg (27.0-34.0); MCHC 33.5 gm/dL (32.0-36.5); MCV 108.3 fl (83.0-98.0); MONOCYTE # 0.6 K/uL (0.0-1.0); MONOCYTE % 10.9 %; MPV 10.7 fl (9.4-12.4); NEUTROPHIL # (ANC) 4.5 K/uL (1.8-7.8); NEUTROPHIL % 75.6 %; NRBC % 0 /100WBC (0-0.00); PLATELET COUNT 110 K/uL (150-450); RBC 5.07 M/uL (3.50-5.50); RDW-CV 15.7 % (11.9-14.6); WBC 5.9 K/uL (4.0-11.0)
[2017-05-27 09:14] LABS: BICARBONATE 41.5 mmol/L (18.0-23.0)
[2017-05-27 09:25] LABS: PCO2 77 mmHg (35-45); PO2 85 mmHg (80-90)
[2017-05-27 09:32] LABS: ALBUMIN 2.6 gm/dL (3.5-5.0); ALK PHOS 43 IU/L (33-138); BLOOD UREA NITROGEN 15 mg/dL (6-24); CALCIUM 8.9 mg/dL (8.5-10.5); CHLORIDE 100 mMol/L (96-110); CREATININE 0.6 mg/dL (0.5-1.1); POTASSIUM 3.8 mMol/L (3.7-5.1); SODIUM 142 mMol/L (135-145); TOTAL BILIRUBIN 1.7 mg/dL (0.0-1.5); TOTAL PROTEIN 5.5 g/dL (6.0-8.4)
[2017-05-27 09:35] LABS: ANION GAP 7.8 (10.0-19.0); AST 627 IU/L (10-40); CO2 38 mMol/L (22-32)
[2017-05-27 09:36] LABS: ALT 1121 IU/L (12-78)
--- NOTE | 2017-05-27 13:45 | NUR ---
Significant Event:PT IS AAOX3. CAN BE SLOW TO RESPOND AT TIMES. PERRLA. NO C/O NUMBNESS OR TINGLING. NO DOUBLE OR BLURRED VISION. HAD HEADACHE TODAY AND GAVE TYLENOL. CLEAR TO CLEAR AND DIMINISHED LUNG SOUNDS. ON BIPAP AT 60%. WHEN EATING PATIENT IS ON HIGH FLOW. EDEMA TO EXTREMITIES NOTED. SBP HAVE BEEN 130-150. ON NITRO GTT. GOAL OF SBP <140. VOID PER BSC. ON HEPARIN GTT. DID NOT HAVE HEART CATH TODAY. WILL WAIT TIL MORE STABLE. Follow up:ABGS IN AM.
[2017-05-28 03:28] LABS: HEMATOCRIT 53.5 % (33.0-46.0); HEMOGLOBIN 17.9 g/dL (10.0-15.0); MCH 34.8 pg (27.0-34.0); MCHC 33.5 gm/dL (32.0-36.5); MCV 103.9 fl (83.0-98.0); MPV 10.8 fl (9.4-12.4); PLATELET COUNT 122 K/uL (150-450); RBC 5.15 M/uL (3.50-5.50); RDW-CV 15.2 % (11.9-14.6); WBC 7.1 K/uL (4.0-11.0)
[2017-05-28 03:52] LABS: ALBUMIN 2.7 gm/dL (3.5-5.0); ALK PHOS 43 IU/L (33-138); ANION GAP 10.5 (10.0-19.0); BLOOD UREA NITROGEN 19 mg/dL (6-24); CALCIUM 8.7 mg/dL (8.5-10.5); CHLORIDE 99 mMol/L (96-110); CO2 32 mMol/L (22-32); CREATININE 0.8 mg/dL (0.5-1.1); POTASSIUM 3.5 mMol/L (3.7-5.1); SODIUM 138 mMol/L (135-145)
[2017-05-28 03:54] LABS: ALT 1047 IU/L (12-78); AST 441 IU/L (10-40); TOTAL BILIRUBIN 1.1 mg/dL (0.0-1.5)
--- NOTE | 2017-05-28 04:04 | NUR ---
Significant Event: ALERT, ORIENTED X3. NO C/O NUMBNESS OR TINGLING. EXTREMITIES STRONG THROUGHOUT. PERSISTENT HEADACHE 3-03/16. TYLENOL AT 2110. BIPAP ON 60% FIO2, HIGH FLOW WHEN EATING. LUNGS CLEAR/DIM. SBP 140S-150S. NITRO DRIP, TITRATE TO KEEP SBP<140. 2+ EDEMA TO EXTREMITIES. RIGHT WRIST PIV INFUSING NITRO, HEPARIN, AND INTERMITTENT ANTIBIOTICS. UP TO BSC WITH SBA. Follow up: ABGS THIS AM
[2017-05-28 05:25] LABS: BICARBONATE 40.2 mmol/L (18.0-23.0); PCO2 68 mmHg (35-45)
[2017-05-28 05:26] LABS: PO2 113 mmHg (80-90)
[2017-05-28 05:49] LABS: ABSOLUTE NEUTROPHIL CT (ANC) 6.9 K/uL (1.8-7.8); BANDED NEUTROPHIL # 0.2 K/uL (0.0-0.1); BANDED NEUTROPHILS % 3 %; LYMPHOCYTE # 0.1 K/uL (0.8-4.0); LYMPHOCYTE % 1 %; MONOCYTE # 0.1 K/uL (0.0-1.0); SEGMENTED NEUTROPHIL # 6.7 K/uL (1.8-7.8); SEGMENTED NEUTROPHIL % 94 %
--- NOTE | 2017-05-28 15:00 | NUR ---
Significant Event:PT IS AAOX3. NO C/O NUMBNESS OR TINLGING. CLEAR IN UPPER LOBES. CLEAR AND DIMINISHED IN LOWER LOBES. ON HIGH FLOW. BIPAP AT NIGHT AND PRN. ACTIVE BS. ON NITRO GTT. ON HEPARIN GTT. TYLENOL GIVEN AT 0908 FOR HEADACHE. CXR DONE TODAY. BUBBLE STUDY TODAY. INCREASE NORVASC TODAY. STARTED LISINOPRIL AND ALDACTONE TODAY. IV R) WRST. L) AC IV Follow up:O2 SATS
--- NOTE | 2017-05-29 04:50 | NUR ---
Significant Event: A&OX3. NO NUMBNESS, TINGLING. HEADACHE AT BEGINNING OF SHIFT. TYLENOL AT 2024. SBP 120S-140S. LASIX IVP AT 2015. NITRO GTT AT 135 JOSE L/MIN. HR 70S-80S. 1-2+ EDEMA TO EXTREMITIES. LUNGS CLEAR TO CLEAR AND DIM IN BASES. 94-97% ON 40%FIO2 BIPAP. HIGH FLOW DURING THE DAY. HEPARIN GTT 1200/HR. NEXT PTTHP 1600. SBA TO BSC. 2300ML URINE OUTPUT THIS SHIFT. Follow up:
[2017-05-29 06:32] LABS: HEMATOCRIT 51.4 % (33.0-46.0); MCH 35.9 pg (27.0-34.0); MCV 102.6 fl (83.0-98.0); PLATELET COUNT 128 K/uL (150-450); RBC 5.01 M/uL (3.50-5.50); RDW-CV 15.6 % (11.9-14.6); WBC 10.3 K/uL (4.0-11.0)
[2017-05-29 06:51] LABS: ALBUMIN 2.6 gm/dL (3.5-5.0); ALK PHOS 40 IU/L (33-138); BLOOD UREA NITROGEN 23 mg/dL (6-24); CALCIUM 8.5 mg/dL (8.5-10.5); CHLORIDE 103 mMol/L (96-110); CO2 28 mMol/L (22-32); CREATININE 0.8 mg/dL (0.5-1.1); SODIUM 139 mMol/L (135-145); TOTAL PROTEIN 5.7 g/dL (6.0-8.4)
[2017-05-29 06:54] LABS: ALT 697 IU/L (12-78); ANION GAP 11.9 (10.0-19.0); AST 135 IU/L (10-40); POTASSIUM 3.9 mMol/L (3.7-5.1)
[2017-05-29 07:27] LABS: ABSOLUTE NEUTROPHIL CT (ANC) 9.5 K/uL (1.8-7.8); BANDED NEUTROPHIL # 0.1 K/uL (0.0-0.1); BANDED NEUTROPHILS % 1 %; LYMPHOCYTE # 0.4 K/uL (0.8-4.0); LYMPHOCYTE % 4 %; MONOCYTE # 0.4 K/uL (0.0-1.0); SEGMENTED NEUTROPHIL # 9.4 K/uL (1.8-7.8); SEGMENTED NEUTROPHIL % 91 %
--- NOTE | 2017-05-29 11:05 | NUR ---
A - PT SCREENED D/T LOS. 1-2+ EDMEA. BIPAP/HI-FRANCIE NC. HT: 65" WT: 05/25 257#, 05/29 239# - DOWN 18# (7%) D/T LASIX, BMI: 40.7. LABS: GLU 251, ALB 2.6, AST 135, ALT 697, HGB/HCT 18.0/51.4. MEDS: PREDNISONE, ALDACTONE, LISINOPRIL, ROCEPHIN, KCL, THIAMINE. DIET: CARDIAC, 2-3 GM SODIUM. INTAKE: REFUSED x 4, 100% x 3. NEEDS: 4902-1145 KCAL (11-14 KCAL/KG), 89-118 G PRO (1.5-2 G/KG IBW), 1520 ML FLUID (1 ML/KG). D - INADEQUATE NUTRIENT INTAKE AT TIMES R/T DECREASED APPETITE AEB INTAKE RECORD. I - GOAL FOR INTAKE >50% FOR DURATION OF STAY. WILL ADD ENSURE @ B TO INC NUTRIENT INTAKE. M/E - WILL MONITOR INTAKE AND F/U IN 3-5 DAYS.
--- NOTE | 2017-05-29 13:35 | NUR ---
Significant Event:PT IS AAOX3. MAEW. ENRIQUE. NO C/O NUMBNESS, TINGLING, CP, OR SOB. ON 3L NC. LUNG SOUNDS ARE CLEAR IN UPPERS AND CLEAR AND DIMINISHED IN LOWERS. TITRATING NITRO GTT DOWN. SBP 130-140'S. ON HEPARIN GTT. ACTIVITY TOLERATED.UP SBA. TYLENOL GIVEN FOR HEADACHE WITH RELIEF NOTED. FAMILY AT BEDSIDE Follow up:SATS AND BP
--- NOTE | 2017-05-30 03:16 | NUR ---
Significant Event: A&OX3. NO NUMBNESS/TINGLING/HEADAHCE. EQUAL STRENGTH THROUGHOUT. SBP 130S-150S. NITRO GTT AT 50 MCG/MIN. HR 60S-80S. BIPAP AT NIGHT, 40% FI02, 02 SAT 93-95%. LUNGS CLEAR AND DIM IN BASES. 2+ EDEMA TO EXTREMITIES. RIGHT WRIST PIV SL'D. LEFT AC PIV INFUSING NITRO AND HEPARIN. STANDBY ASSIST. CARDIAC DIET. Follow up:
[2017-05-30 04:56] LABS: BASOPHIL % 0.2 %; EOSINOPHIL % 0.4 %; HEMATOCRIT 52.9 % (33.0-46.0); HEMOGLOBIN 18.3 g/dL (10.0-15.0); IMMATURE GRANULOCYTE % 0.5 %; LYMPHOCYTE % 11.7 %; MCH 35.8 pg (27.0-34.0); MCHC 34.6 gm/dL (32.0-36.5); MCV 103.5 fl (83.0-98.0); MONOCYTE # 0.8 K/uL (0.0-1.0); MONOCYTE % 10.3 %; MPV 10.9 fl (9.4-12.4); NEUTROPHIL # (ANC) 6.3 K/uL (1.8-7.8); NEUTROPHIL % 76.9 %; NRBC % 0 /100WBC (0-0.00); PLATELET COUNT 132 K/uL (150-450); RBC 5.11 M/uL (3.50-5.50); RDW-CV 15.8 % (11.9-14.6); WBC 8.2 K/uL (4.0-11.0)
[2017-05-30 05:15] LABS: ALBUMIN 2.6 gm/dL (3.5-5.0); ALK PHOS 44 IU/L (33-138); BLOOD UREA NITROGEN 25 mg/dL (6-24); CALCIUM 8.8 mg/dL (8.5-10.5); CHLORIDE 110 mMol/L (96-110); CO2 25 mMol/L (22-32); CREATININE 0.7 mg/dL (0.5-1.1); SODIUM 142 mMol/L (135-145); TOTAL PROTEIN 5.8 g/dL (6.0-8.4)
[2017-05-30 05:18] LABS: ALT 530 IU/L (12-78); ANION GAP 10.6 (10.0-19.0); AST 59 IU/L (10-40); POTASSIUM 3.6 mMol/L (3.7-5.1); TOTAL BILIRUBIN 1.3 mg/dL (0.0-1.5)
--- NOTE | 2017-05-30 17:57 | NUR ---
Significant Event:VSS, Titrating off NTG, current rate 25mcg/hr. SBP 128-131/70-80. Tolerating well, denies chest pain or headache. Heparin gtt at 1200units/hr, PTTHP 58, next one due at 0400. Pt to be NPO after MD for possible R heart cath in a.m. Lasix 40mg IV and K 40 meq po given at 1330. Good UOP in 400ml amounts. IVSL to R wrist, and L AC infusing both gtts. Follow up:Monitor
[2017-05-31 04:05] LABS: BASOPHIL % 0.1 %; EOSINOPHIL % 0.3 %; HEMATOCRIT 52.8 % (33.0-46.0); HEMOGLOBIN 18.1 g/dL (10.0-15.0); IMMATURE GRANULOCYTE % 0.3 %; LYMPHOCYTE # 1.1 K/uL (0.8-4.0); LYMPHOCYTE % 16.6 %; MCH 35.6 pg (27.0-34.0); MCHC 34.3 gm/dL (32.0-36.5); MCV 103.9 fl (83.0-98.0); MONOCYTE # 0.8 K/uL (0.0-1.0); MONOCYTE % 11.2 %; MPV 11.1 fl (9.4-12.4); NEUTROPHIL # (ANC) 4.9 K/uL (1.8-7.8); NEUTROPHIL % 71.5 %; NRBC % 0 /100WBC (0-0.00); PLATELET COUNT 129 K/uL (150-450); RBC 5.08 M/uL (3.50-5.50); RDW-CV 15.9 % (11.9-14.6); WBC 6.8 K/uL (4.0-11.0)
[2017-05-31 04:22] LABS: ALBUMIN 2.7 gm/dL (3.5-5.0); ALK PHOS 40 IU/L (33-138); ANION GAP 11.7 (10.0-19.0); AST 33 IU/L (10-40); BLOOD UREA NITROGEN 26 mg/dL (6-24); CALCIUM 8.5 mg/dL (8.5-10.5); CHLORIDE 110 mMol/L (96-110); CO2 25 mMol/L (22-32); CREATININE 0.8 mg/dL (0.5-1.1); POTASSIUM 3.7 mMol/L (3.7-5.1); SODIUM 143 mMol/L (135-145); TOTAL BILIRUBIN 1.1 mg/dL (0.0-1.5); TOTAL PROTEIN 5.7 g/dL (6.0-8.4)
[2017-05-31 04:35] LABS: ALT 390 IU/L (12-78)
--- NOTE | 2017-05-31 04:37 | NUR ---
Significant Event: The Patient is Alert and Oriented x3. Denies Numbness and Tingling. Moves all extremities spontaneously and to command. Up with SBA, gaitbelt. Denies Pain. VSS. Nitro gtt infusing at 25mcg/min, Heparin gtt infusing at 1300 units/hr. SBP goal is less than 140. On 1L oxygen during the day and Bipap at night. PIV to the Right wrist saline locked. PIV to the Left AC infusing the Heparin and nitro. Generalized edema. Follow up: Possible heart cath today, Next PTT-HP is at 1100.
--- NOTE | 2017-05-31 14:33 | NUR ---
Introduced self and CM role to Kayleigh and her multiple family members who were at bedside. Kayleigh tells me that she lives at home in [place], [place]. It is her plan to return there when medically stable to do so. Sourav' PCP is . She manages her own medications at home, will continue to do so when dismissed. Kayleigh reports that she is on O2 here which is new for her. Explained to her that RT would help with anything O2 related upon dismissal. Denies any needs for DME or HHC when dismissed. Kayleigh is hoping that she can go home in the next few days. Family will transport her when that time comes. No other questions, needs or concerns. Plan home. CM contact information was left on her whiteboard if any further questions might come up during her stay. CM to continue to follow and assist.
[2017-05-31] MEDS ORDERED: OXYGEN M-15 INH (15:44)
[2017-05-31] MEDS ORDERED: XARELTO15 MG PO (15:46)
[2017-05-31] MEDS ORDERED: NORVASC10 MG PO (16:04)
[2017-05-31] MEDS ORDERED: DELTASONE20 MG (16:10)
[2017-05-31] MEDS ORDERED: THIAMINE HCL100 MG PO (16:14)
[2017-05-31] MEDS ORDERED: SYMBICORT 16010.2 GM INH (16:16)
--- NOTE | 2017-05-31 18:37 | NUR ---
Pt and spouse reviewed DC instructions, new and current medication list, and appointment with Dr. Harrell. Pt dsgs to R AC and L arm IV site wrapped in gauze/coban dsg. All remained CDI on discharge. Pt understood to monitor for bleeding, bruising at cath site (RAC) and since she is taking Xarelto. Pt understood correct application and use of O2 at 2L at night time. Pt dc to home with spouse in stable condition.
== END 2017-05-31 18:25 | disposition disaster alternative care site (69) | DRG 175 ==
LOC: GICU 13:32
PROVIDERS: Internal Medicine; Internal Medicine Cardiovascular Disease; Internal Medicine Critical Care Medicine; Nurse Practitioner; ADMIT Internal Medicine
DX: I26.99 Other pulmonary embolism without acute cor pulmonale (principal); I50.31 Acute diastolic (congestive) heart failure; J96.01 Acute respiratory failure with hypoxia; E87.3 Alkalosis; N17.9 Acute kidney failure, unspecified; J44.1 Chronic obstructive pulmonary disease with (acute) exacerbation; Z68.41 Body mass index [BMI] 40.0-44.9, adult; I27.2 Other secondary pulmonary hypertension; I82.409 Acute embolism and thrombosis of unspecified deep veins of unspecified lower extremity; I11.0 Hypertensive heart disease with heart failure; D75.1 Secondary polycythemia; E66.01 Morbid (severe) obesity due to excess calories; F10.10 Alcohol abuse, uncomplicated; K76.1 Chronic passive congestion of liver
CPT/HCPCS: C1894; C8924; C8929; G0480; J0696; J1120; J1644; J1940; J2920; J2930; J3010; J7040; J7050; J7060; J7512